=== PATIENT | male | born 1960 | race Caucasian/White ===

== ENCOUNTER → 2017-06-02 | Outpatient (CLI) | payer OTHER ==
[~2017-06-02] MED LIST: ALBU1AER9 INH; DOCU100C31 PO; GLC850 PO; ISOS60TA2 PO; LEVO-14 PO; LISI-789 PO; LPR50X PO; NITR0.4S UT; ROSU40TA PO; ULT50X PO; XRL10 PO
[2017-06-02 18:17] LABS: RATIO 5.6 mcg/mg (0-30.0)
== END | disposition home or self-care (01) ==
LOC: C.LABMFLN 16:39
PROVIDERS: ATTEND Family Medicine
DX: E11.9 Type 2 diabetes mellitus without complications (principal)

== ENCOUNTER → 2017-12-13 | Outpatient (CLI) | payer OTHER ==
[~2017-12-13] MED LIST changes: -GLC850 PO; +METF850T10 PO
[2017-12-13 17:49] LABS: BASO % 0.4 %; BASO ABS # 0.04 K/uL (0-0.2); EOS % 2.5 %; EOS ABS # 0.28 K/uL (0-0.5); HEMATOCRIT 45.7 % (42-52); HEMOGLOBIN 14.7 g/dL (14.0-18.0); IG# 0.03 K/uL (0.00-0.02); LYMPH ABS # 2.53 K/uL (1.2-3.4); MEAN CELL VOLUME 81.9 fL (80-100); MEAN CORPUSCULAR HEMOGLOBIN 26.3 pg (25-34); MEAN CORPUSCULAR HGB CONC 32.2 g/dl (32-36); MONO % 7.8 %; MONO ABS # 0.86 K/uL (0.11-0.59); NEUT ABS # 7.25 K/uL (1.4-6.5); PLATELET COUNT 226 K/uL (130-400); RED CELL DISTRIBUTION WIDTH CV 14.9 % (11.5-14.5); RED CELL DISTRIBUTION WIDTH SD 44.5 fL (36.4-46.3); WHITE BLOOD COUNT 10.99 K/uL (4.8-10.8)
[2017-12-13 18:19] LABS: ALBUMIN 3.7 gm/dl (3.4-5.0); ALT/SGPT 34 U/L (12-78); AST/SGOT 21 U/L (15-37); BLOOD UREA NITROGEN 13 mg/dl (7-18); CALCIUM 8.7 mg/dl (8.5-10.1); CARBON DIOXIDE 25 mmol/L (21-32); CREATININE 0.99 mg/dl (0.60-1.40); GLUCOSE 107 mg/dl (70-99); POTASSIUM 4.5 mmol/L (3.5-5.1); SODIUM 139 mmol/L (136-145)
[2017-12-13 18:21] LABS: ALKALINE PHOSPHATASE 69 U/L (45-117); LDL CHOLESTEROL (DIRECT) 60 mg/dl; TOTAL PROTEIN 7.3 gm/dl (6.4-8.2)
[2017-12-14 06:23] LABS: HEMOGLOBIN A1C 7.1 % (4.5-5.6)
== END | disposition home or self-care (01) ==
LOC: C.LABMFLN 13:37
PROVIDERS: ATTEND Family Medicine
DX: Z00.00 Encounter for general adult medical examination without abnormal findings (principal); I10 Essential (primary) hypertension; E78.5 Hyperlipidemia, unspecified; E11.9 Type 2 diabetes mellitus without complications; R10.32 Left lower quadrant pain

== ENCOUNTER → 2017-12-14 | Outpatient (CLI) | payer OTHER | LOC: C.LABMFLN 14:45 | PROVIDERS: ATTEND Family Medicine | DX: R10.32 Left lower quadrant pain (principal) ==

== ENCOUNTER → 2018-05-11 | Outpatient (CLI) | payer OTHER ==
[2018-05-11 18:23] LABS: BLOOD UREA NITROGEN 24 mg/dl (7-18); CREATININE 1.12 mg/dl (0.60-1.40)
[2018-05-12 06:29] LABS: HEMOGLOBIN A1C 7.1 % (4.5-5.6)
== END | disposition home or self-care (01) ==
LOC: C.LABMFLN 13:38
PROVIDERS: ATTEND Family Medicine
DX: Z01.812 Encounter for preprocedural laboratory examination (principal); E11.9 Type 2 diabetes mellitus without complications

== ENCOUNTER 2022-05-07 08:52 | Inpatient (IN) ==
--- NOTE | 2022-04-20 14:42 | PAT Medication Instructions ---
Medication Instructions Date of Service April 20, 2022 Home Medications Medication Instructions Recorded blood-glucose meter #1 kit 05/15/21 fluticasone propionate 50 See Rx Instructions .Route 06/16/21 mcg/actuation nasal .COMPLEX #16 grams spray,suspension lancets 33 gauge (Rubnia Clark #100 ea 08/12/21 Lancets) gabapentin 300 mg capsule 300 mg PO BID #180 caps 01/06/22 famotidine 40 mg tablet 40 mg PO HS #90 tabs 01/16/22 albuterol sulfate 90 mcg/actuation 2 puff inhalation Q4H PRN 01/27/22 aerosol inhaler shortness of breath or wheezing #18 grams fluticasone propionate 50 mcg/actuation nasal spray,suspension See Rx Instructions .Route .COMPLEX gabapentin 300 mg capsule 300 mg PO BID famotidine 40 mg tablet 40 mg PO HS albuterol sulfate 90 mcg/actuation aerosol inhaler 2 puff inhalation Q4H PRN shortness of breath or wheezing acetaminophen 500 mg tablet 500 mg PO Q6H PRN Pain aspirin 81 mg tablet,delayed release 81 mg PO QAM cyclosporine 0.05 % eye drops in a dropperette (Restasis) 1 drp ophthalmic (eye) Q12H levocetirizine 5 mg tablet 5 mg PO QPM linagliptin 5 mg-metformin ER 1,000 mg tablet,extended release 24 hr (Jentadueto XR) 1 tab PO QAM lisinopril 5 mg tablet 5 mg PO QAM rosuvastatin 10 mg tablet (Crestor) 10 mg PO QPM semaglutide (Ozempic) 0.5 mg subcut WK umeclidinium 62.5 mcg/actuation blister powder for inhalation (Incruse Ellipta) 1 inh inhalation QAM Continue as directed semaglutide (Ozempic) 0.5 mg subcut WK ASK your prescriber and surgeon aspirin 81 mg tablet,delayed release 81 mg PO QAM DO NOT take the morning of surgery linagliptin 5 mg-metformin ER 1,000 mg tablet,extended release 24 hr (Jentadueto XR) 1 tab PO QAM lisinopril 5 mg tablet 5 mg PO QAM Take morning of surgery With a small sip of water, OTHERWISE NOTHING TO EAT OR DRINK AFTER MIDNIGHT: fluticasone propionate 50 mcg/actuation nasal spray,suspension See Rx Instructions .Route .COMPLEX (if needed) gabapentin 300 mg capsule 300 mg PO BID albuterol sulfate 90 mcg/actuation aerosol inhaler 2 puff inhalation Q4H PRN shortness of breath or wheezing (use if needed; please bring rescue inhaler with you to hospital day of surgery if possible) acetaminophen 500 mg tablet 500 mg PO Q6H PRN Pain (if needed) cyclosporine 0.05 % eye drops in a dropperette (Restasis) 1 drp ophthalmic (eye) Q12H umeclidinium 62.5 mcg/actuation blister powder for inhalation (Incruse Ellipta) 1 inh inhalation QAM Take evening before surgery fluticasone propionate 50 mcg/actuation nasal spray,suspension See Rx Instructions .Route .COMPLEX (if needed) gabapentin 300 mg capsule 300 mg PO BID famotidine 40 mg tablet 40 mg PO HS albuterol sulfate 90 mcg/actuation aerosol inhaler 2 puff inhalation Q4H PRN shortness of breath or wheezing (if needed) acetaminophen 500 mg tablet 500 mg PO Q6H PRN Pain (if needed) cyclosporine 0.05 % eye drops in a dropperette (Restasis) 1 drp ophthalmic (eye) Q12H levocetirizine 5 mg tablet 5 mg PO QPM rosuvastatin 10 mg tablet (Crestor) 10 mg PO QPM Other Notes If you have any questions please call us at [phone] or [phone] or [phone] or [phone]
--- NOTE | 2022-04-24 11:48 | Anesthesiology Consultation ---
Date of Service April 24, 2022 Assessment & Plan (1) Encounter for pre-operative examination: - Patient acceptable risk for surgery pending surgeon-ordered PCP preop evaluation (05/04; [facility]). - COVID screening: Per assessment on 04/24: No known COVID-19 positive contacts or current COVID-19 related symptoms. Travel screen negative. Patient vaccinated. Surgeon arranging preop COVID testing. Awaiting results. - Check [facility] AM DOS Chart Review Chart Review: Patient seen in Pre Admission Testing Teaching & Discussion Pre-Anesthesia Teaching/Discussion Notes: Instructed NPO after midnight before surgery,except medications with 15 cc of water. Medication instructions provided according to the PAT guidelines. History Surgery Operation Date: 05/08/22 11:35 Proposed Procedures p L3-L5 Decompression and Fusion Spinal Cord Monitoring - Ulises Castrejon DO Height/Weight Height: 5 ft 3 in Weight: 102.6 kg Allergies Allergy/AdvReac Type Severity Reaction Status Date / Time No Known Allergies Allergy Unknown Verified 04/20/22 12:05 Medications Home Medications Medication Instructions Recorded Confirmed Last Taken blood-glucose meter #1 kit 05/15/21 03/16/22 Unknown fluticasone propionate 50 See Rx Instructions .Route 06/16/21 04/20/22 Unknown mcg/actuation nasal .COMPLEX #16 grams spray,suspension lancets 33 gauge (OneTouch Delica #100 ea 08/12/21 03/16/22 Unknown Lancets) gabapentin 300 mg capsule 300 mg PO BID #180 caps 01/06/22 04/20/22 Unknown famotidine 40 mg tablet 40 mg PO HS #90 tabs 01/16/22 04/20/22 Unknown albuterol sulfate 90 mcg/actuation 2 puff inhalation Q4H PRN 01/27/22 04/20/22 Unknown aerosol inhaler shortness of breath or wheezing #18 grams acetaminophen 500 mg tablet 500 mg PO Q6H PRN Pain 04/20/22 04/20/22 Unknown aspirin 81 mg tablet,delayed 81 mg PO QAM 04/20/22 04/20/22 Unknown release cyclosporine 0.05 % eye drops in a 1 drp ophthalmic (eye) Q12H 04/20/22 04/20/22 Unknown dropperette (Restasis) levocetirizine 5 mg tablet 5 mg PO QPM 04/20/22 04/20/22 Unknown linagliptin 5 mg-metformin ER 1 tab PO QAM 04/20/22 04/20/22 Unknown 1,000 mg tablet,extended release 24 hr (Jentadueto XR) lisinopril 5 mg tablet 5 mg PO QAM 04/20/22 04/20/22 Unknown rosuvastatin 10 mg tablet (Crestor) 10 mg PO QPM 04/20/22 04/20/22 Unknown semaglutide 0.25 mg or 0.5 mg (2 0.5 mg subcut WK 04/20/22 04/20/22 Unknown mg/1.5 mL) subcutaneous pen injector (Ozempic) umeclidinium 62.5 mcg/actuation 1 inh inhalation QAM 04/20/22 04/20/22 Unknown blister powder for inhalation (Incruse Ellipta) Past Medical History Medical History Allergic rhinitis Anxiety Cervical radiculopathy Cervical spinal stenosis Chronic back pain Chronic GERD Occasional Complex partial seizure Single episode 5+ years - felt r/t severe pain and arm injury per pt COPD, moderate Stable Coronary artery disease Non-obstructive CAD (circumflex PDA 50-60 proximal stenosis, Mild RCA 20%) per 2014 cardiac cath Degenerative disc disease Depression DM type 2 (diabetes mellitus, type 2) NIDDM Dyslipidemia Dystonic tremor Pt denies Per [facility] [place] (06/09/21): "Resolved paroxysmal upper extremity movements. Etiology of these movements was not entirely clear although they seem to respond to Keppra. In any event, this prescription ran out about 1 month ago. The abnormal movements have not recurred. At this point in time, patient will continue to monitor for any symptomatic recurrence, if so, may contact me for further evaluation and management at that time. Otherwise, return to neurology clinic on an as-needed basis." Hypertension Osteoarthritis Poor historian Sciatica Sleep apnea Does not use device Exercise / Class Metabolic Activity III < 4 Walking/Shop/Light housework Past Family History Family History Mother Type 2 diabetes mellitus Acute myocardial infarction Father Prostate cancer Type 2 diabetes mellitus Acute myocardial infarction Brother Lymphoma Other No family history of adverse response to anesthesia Past Surgical History Surgical History History of appendectomy History of cardiac catheterization 2013 ([facility]) History of colonoscopy History of inguinal hernia repair Right History of knee replacement R/L History of oral surgery History of repair of rotator cuff Right History of tonsillectomy and adenoidectomy Hx of cervical spine surgery Fusion/"wires" S/P knee surgery Left knee ligament removal Past Anesthesia History No Hx of Anesthesia Complications and No Family Hx of Anesthesia Complications History of PONV No Hx of PONV and No Hx of Motion Sickness Social History Smoking Status: Never smoker Do You Dip or Chew Tobacco: No Hx Alcohol Use: No Hx Substance Use: No Review of Systems Patient denies chest pain, shortness of breath, fever, chills, cough, wheezing, palpitations. Physical Exam Vital Signs VITALS BP 105/62 P 87 TEMP 98.1 SP02 97%RA RESP 18 PHYSICAL Decreased cervical extension range of motion (s/p cervical fusion) Full TMJ range of motion. TMD 3 finger breaths Mallampati Score 2 Dentition: full upper denture, edentulous Lungs: clear throughout to auscultation Cardiac: regular rate and rhythm, no murmurs noted Spine: normal Carotid arteries: negative bruit Extremities: no edema Lab Results Anesthesia Preop Results Results Anesthesia Widget: WBC 7.78 K/ul (4.8-10.8) 04/24/22 Hgb 14.2 g/dl (14.0-18.0) 04/24/22 Hct 43.3 % (40.1-51.0) 04/24/22 Plt 188 K/uL (130-400) 04/24/22 Na 137 mmol/L (136-145) 04/24/22 K 4.8 mmol/L (3.5-5.1) 04/24/22 Cl 105 mmol/L (98-107) 04/24/22 CO2 27 mmol/L (21-32) 04/24/22 BUN 18 mg/dl (6-23) 04/24/22 Creat 1.17 mg/dl (0.6-1.4) 04/24/22 Glucose Level 169 mg/dl (70-99(Fasting)) H 04/24/22 PT 10.7 Seconds (9.0-12.0) 04/24/22 PTT 25.5 Seconds (21.0-31.0) 04/24/22 INR 1.0 (0.9-1.1) 04/24/22 Urine Color Yellow 04/24/22 Urine Appearance Clear (Clear) 04/24/22 Urine pH 5.0 (4.5-7.5) 04/24/22 Urine Specific [place] 1.029 (1.000-1.030) 04/24/22 Urine Protein Negative (Negative) 04/24/22 Urine Glucose (UA) 2+ (Negative) H 04/24/22 Urine Ketones Negative (Negative) 04/24/22 Urine Blood Negative (Negative) 04/24/22 Urine Nitrite Negative (Negative) 04/24/22 Urine Bilirubin Negative (Negative) 04/24/22 Urine Urobilinogen Negative (Negative) 04/24/22 Urine Leukocyte Esterase Negative (Negative) 04/24/22 Blood Type A Positive 04/24/22 Antibody Screen NEGATIVE 04/24/22 Testing Laboratory Results 11/11/21 HGBA1C 7.1% Electrocardiogram Date: 04/24/22 SR with marked sinus arrhythmia at 67bpm. Early repolarization. Otherwise normal ECG. Chest X-Ray Date: 10/14/21 No acute findings. Lungs are clear. No pleural effusions or pneumothorax. Echocardiogram Date: 01/14/21 EF 60-65%. No RWMA. Moderate cLVH. Trivial AV sclerosis without stenosis. Mild diastolic dysfunction. No significant change from 10/12/2013 per report. Stress Test Date: 04/21/16 Type: nuclear Normal Lexiscan. Normal stress test. LVEF 56%. 3 times daily is 1.26 which is upper limits of normal. 79% MPHR. Other Testing CTA Neck (10/15/21) Postsurgical changes are noted with prior decompressive laminectomies and C3-C6 posterior spinal fusion instrumentation. Atherosclerosis without significant stenosis by NASCET criteria at the carotid bulb and no evidence of intracranial large vessel occlusion. Patient's palpable lump in the anterior neck may be related to the prominent anterior jugular vein, a normal vascular structure. S table CT head without evidence of acute intracranial hemorrhage or calvarial fracture.
[~2022-05-07 08:52] MED LIST changes: +ACETAMINOPHEN 500 MG TAB PO SCH; -ALBU1AER9 INH; +CeleBREX 200 MG CAP PO SCH; -DOCU100C31 PO; +GABAPENTIN 600 MG DOSE PO SCH; -ISOS60TA2 PO; -LEVO-14 PO; -LISI-789 PO; -LPR50X PO; +LR 15ML/HR IV SCH; -METF850T10 PO; -NITR0.4S UT; -ROSU40TA PO; -ULT50X PO; -XRL10 PO; +ceFAZolin 2000MG 2,000 MG/15 ML SYR IV SCH
[2022-05-07] MEDS ORDERED: ePHEDrine sulfate 50 MG/ML AMP IV PRN (09:55)
[2022-05-07] MEDS ORDERED: HYDROmorphone INJ 1 MG/ML SYRINGE IV PRN ×2 (09:55→16:07)
[2022-05-07] MEDS ORDERED: ATROPINE SULFATE 0.1 MG/ML 10ML SYR IV PRN (09:55)
[2022-05-07] MEDS ORDERED: ONDANSETRON INJ 2 MG/ML 2 ML VIAL IV PRN ×2 (09:55→16:07)
[2022-05-07] MEDS ORDERED: fentaNYL citrate 100 MCG/2 ML VIAL ONE ×2 (10:53→14:09)
[2022-05-07] MEDS ORDERED: DEXAMETHASONE SOD INJ 4 MG/ML VIAL ONE (10:53)
[2022-05-07] MEDS ORDERED: PROPOFOL IV EMULSION 10 MG/ML 20 ML VIAL IV ONE (10:53)
[2022-05-07] MEDS ORDERED: ONDANSETRON INJ 2 MG/ML 2 ML VIAL ONE (10:53)
[2022-05-07] MEDS ORDERED: MIDAZOLAM HCL 1 MG/ML 2ML VIAL ONE (10:53)
[2022-05-07] MEDS ORDERED: LIDOCAINE 2% MPF LOCAL 5 ML VIAL INFIL ONE (10:53)
[2022-05-07] MEDS ORDERED: ROCURONIUM BROMIDE 10 MG/ML 5 ML VIAL IV ONE ×6 (10:53→12:32)
--- NOTE | 2022-05-07 11:30 | History & Physical Bridge Note ---
Date of Service May 07, 2022 History & Physical Bridge Note I have examined the patient, reviewed the History & Physical and in the interval since the performance of the History & Physical I have noted the following changes of clinical significance: no changes noted
--- NOTE | 2022-05-07 11:31 | History & Physical Report ---
Date of Service May 07, 2022 Assessment & Plan (1) Neurogenic claudication due to lumbar spinal stenosis: Plan: L3-L5 decompression and fusion History of Present Illness Chief Complaint: Back and leg pain Primary Care Provider: Vernon Hoffman MD This is a 61-year-old male who presents with chronic persistent back and leg pain. Of failed course of nonoperative care is here for surgical intervention. Allergies Allergy/AdvReac Type Severity Reaction Status Date / Time No Known Allergies Allergy Unknown Verified 05/07/22 09:16 Home Medications Medication Instructions Recorded Confirmed Type blood-glucose meter #1 kit 05/15/21 05/04/22 Rx fluticasone propionate 50 See Rx Instructions .Route 06/16/21 05/07/22 Rx mcg/actuation nasal .COMPLEX #16 grams spray,suspension lancets 33 gauge (OneTouch Delica #100 ea 08/12/21 05/04/22 Rx Lancets) gabapentin 300 mg capsule 300 mg PO BID #180 caps 01/06/22 05/07/22 Rx albuterol sulfate 90 mcg/actuation 2 puff inhalation Q4H PRN 01/27/22 05/07/22 Rx aerosol inhaler shortness of breath or wheezing #18 grams acetaminophen 500 mg tablet 500 mg PO Q6H PRN Pain 04/20/22 05/07/22 History aspirin 81 mg tablet,delayed 81 mg PO QAM 04/20/22 05/07/22 History release cyclosporine 0.05 % eye drops in a 1 drp ophthalmic (eye) Q12H 04/20/22 05/07/22 History dropperette (Restasis) levocetirizine 5 mg tablet 5 mg PO QPM 04/20/22 05/07/22 History linagliptin 5 mg-metformin ER 1 tab PO QAM 04/20/22 05/07/22 History 1,000 mg tablet,extended release 24 hr (Jentadueto XR) lisinopril 5 mg tablet 5 mg PO QAM 04/20/22 05/07/22 History semaglutide 0.25 mg or 0.5 mg (2 0.5 mg subcut WK 04/20/22 05/07/22 History mg/1.5 mL) subcutaneous pen injector (Ozempic) umeclidinium 62.5 mcg/actuation 1 inh inhalation QAM 04/20/22 05/07/22 History blister powder for inhalation (Incruse Ellipta) blood sugar diagnostic (OneTouch #100 ea 04/30/22 05/04/22 Rx Ultra Test strips) docusate sodium 100 mg capsule 100 mg PO BID #60 caps 05/06/22 05/07/22 Rx (Colace) famotidine 40 mg tablet (Pepcid) 40 mg PO HS 05/07/22 05/07/22 History rosuvastatin 10 mg tablet 10 mg PO HS 05/07/22 05/07/22 History Past Med/Surg History Medical History Allergic rhinitis Anxiety Cervical radiculopathy Cervical spinal stenosis Chronic back pain Chronic GERD Occasional Complex partial seizure Single episode 5+ years - felt r/t severe pain and arm injury per pt COPD, moderate Stable Coronary artery disease Non-obstructive CAD (circumflex PDA 50-60 proximal stenosis, Mild RCA 20%) per 2014 cardiac cath Degenerative disc disease Depression DM type 2 (diabetes mellitus, type 2) NIDDM Dyslipidemia Dystonic tremor Pt denies Per [facility] [place] neuro note (06/09/21): "Resolved paroxysmal upper extremity movements. Etiology of these movements was not entirely clear although they seem to respond to Keppra. In any event, this prescription ran out about 1 month ago. The abnormal movements have not recurred. At this point in time, patient will continue to monitor for any symptomatic recurrence, if so, may contact me for further evaluation and management at that time. Otherwise, return to neurology clinic on an as-needed basis." Hypertension Osteoarthritis Poor historian Sciatica Sleep apnea Does not use device Surgical History History of appendectomy History of cardiac catheterization 2013 ([facility]) History of colonoscopy History of inguinal hernia repair Right History of knee replacement R/L History of oral surgery History of repair of rotator cuff Right History of tonsillectomy and adenoidectomy Hx of cervical spine surgery Fusion/"wires" S/P knee surgery Left knee ligament removal Family History Mother Type 2 diabetes mellitus Acute myocardial infarction Father Prostate cancer Type 2 diabetes mellitus Acute myocardial infarction Brother Lymphoma Other No family history of adverse response to anesthesia Social History Smoking Status: Former smoker Second Hand Exposure: No; Do You Dip or Chew Tobacco: No; Tobacco Cessation Education Requested by Patient: No Hx Alcohol Use: No Hx Substance Use: No Preferred Language: Czech Communication Ability: Effective Visual Impairment: No Limitations Hearing Ability: Normal Scraper Meat Required: No Beliefs That Will Affect Care: None marital status: Current Living Situation: Spouse Current Living Situation Comment: , daughter and son in law and granddaughter current occupational status: unemployed and disabled Other Information That Helps Us Care for You: No Feels Safe at Home: Yes Safety Concerns: Feels Safe At This Time caffeine: Yes Dental Care, Regularly: No Physical Activity Frequency: Does not Exercise Seatbelt Use: always Sunscreen Use: No Assistive Devices: Cane, Denture - Upper, Glasses and Walker Physical Exam Physical Exam: Patient is alert and oriented Heart regular rhythm Lungs clear Results & Data Results & Data ([facility]) Vital Signs (Past 12 Hours) Vital Signs Temp Pulse Resp BP Pulse Ox O2 Del Method 05/07/22 09:28 36.5 C 72 18 137/82 98 Room Air
[2022-05-07] MEDS ORDERED: BUPIVACAINE/EPINEPHRINE 0.25% 1:200,000 30 ML VIAL ONE (11:53)
[2022-05-07] MEDS ORDERED: ceFAZolin 330 MG/ML 1 GM VIAL ONE (11:53)
[2022-05-07] MEDS ORDERED: GLYCOPYRROLATE 0.2 MG/ML VIAL ONE (13:11)
[2022-05-07] MEDS ORDERED: NEOSTIGMINE METHYLSULFATE 1 MG/ML 10ML VIAL ONE (13:11)
[2022-05-07] MEDS ORDERED: FLOSEAL HEMOSTATIC MATRIX 10ML TOP ONE (13:22)
--- NOTE | 2022-05-07 15:05 | Operative Report ---
Post Operative Report Pre & Post Diagnosis Operation Date: 05/07/22 11:05 Pre-Op Diagnosis: Neurogenic claudication due to lumbar spinal stenosis Post-Op Diagnosis: Neurogenic claudication due to lumbar spinal stenosis I identified the patient and participated in the time-out.: Yes Procedure Operation Date: 05/07/22 11:05 Actual Procedures #1 lumbar decompression bilateral medial facetectomies and foraminotomies L2-L3, L3-L4 and L4-5 per #2 posterior spinal fusion L3-L4 L4-5 per #3 placement posterior instrumentation L3-L4 L4-L5. #4 interbody fusion L3-L4 L4-L5. #5 placement of Spira 13 x 26 mm cage at L3-L4 and 15 x 26 mm cage at L4-L5. #6 placement locally harvested morselized autograft in the posterior gutters. #7 placement of I factor combined with V toss interbody space and posterior lateral gutters. Surgeon Ulises Castrejon, DO Oven Laborer None Estimated Blood Loss 300 Findings See Below The patient is 5 foot 8 weighing over 100 kg with a BMI in excess of 33. Patient's body habitus did contribute to significant technical difficulty requiring her deeper retractors and longer instruments noted to perform his procedure. This had at least 50% increased operative time. Specimens None Indications This is a 61-year-old male who presents above-mentioned diagnosis after failed course of nonoperative care is here for surgical invention. Description of Procedure Patient was met with identified informed consent obtained. Patient was then taken to the operative suite underwent a patient placed in a prone position on the Beni table on top Kehinde frame. All bony prominences well-padded eyes inspected to ensure no external pressure placed upon the. This point the lumbar spine was prepped and draped in normal sterile fashion. Sharp dissection with assistance of Bovie cautery was performed down to and exposing the lamina transverse processes of L3-L4-L5 bilaterally. From caudal to cephalad fashion complete laminectomy of L4 L3 and partial laminectomy of L2 was performed including bilateral medial facetectomies and foraminotomies addressing severe spinal stenosis. Pedicle screws then placed in L3 L4-5 bilaterally with assistance of fluoroscopy and the properly sized daren placed. By way of transforaminal approach on the left complete discectomy L4-L5 was performed endplates curetted to subcortical bleeding bone and a 15 x 26 mm spiral cage filled I factor tapped in position. Then proceeded to L3-L4 to get by way of t ransforaminal approach and left complete discectomy performed endplates curetted to subcortical bleeding bone and a 13 x 26 mm spiral cage filled with I factor tapped in position. Rods were then locked in final position bilaterally. The transverse processes of L3-L4-L5 burred to subcortically bone. I factor V toss and locally harvested morselized autograft was placed in the posterior gutters. 15 round BROOKS drain inserted. The incision was then closed with 1 Vicryl the fascia 2-0 Vicryl subcutaneously and 4 Monocryl for final skin closure. Steri- Strip sterile dressings placed. Patient waken taken PACU stable condition. Please note spinal cord monitoring was utilized at the procedure no changes noted. I attest to the content of the Intraoperative Record and any orders documented therein. Any exceptions are noted below.
--- NOTE | 2022-05-07 15:14 | Anesthesiology Progress Note ---
Date of Service May 07, 2022 Anesthesia Post Procedure Vital Signs Vital Signs: Temp Pulse Resp BP Pulse Ox O2 Del Method O2 Flow Rate 05/07/22 15:10 69 18 117/73 99 Oxymask 4 05/07/22 15:00 69 16 116/72 99 Oxymask 6 05/07/22 14:50 97.5 F L 74 16 121/72 99 Oxymask 8 05/07/22 09:28 97.7 F 72 18 137/82 98 Room Air Transfer of Care Handoff Completed per policy Notes Mental Status: alert / awake / arousable and participated in evaluation Patient Amnestic to Procedure: Yes Nausea / Vomiting: adequately controlled Pain: adequately controlled Airway Patency, RR, SpO2: stable & adequate BP & HR: stable & adequate Hydration State: stable & adequate Anesthetic Complications: no major complications apparent and Pt Satisfied with anesthetic care
[2022-05-07] MEDS: fentaNYL citrate 100 MCG/2 ML VIAL IV PRN ×2 (15:26→15:31)
--- NOTE | 2022-05-07 15:26 | Fluoroscopy Report ---
INTRAOPERATIVE RADIOGRAPHS CLINICAL HISTORY: L3-L5 spinal fusion. Fluoroscopy time: 21 seconds. FINDINGS: 2 spot fluoroscopic views of the lumbar spine are presented. There has been discectomy at L 3-L4 and L4-L5 with laminectomy and posterior fusion at L3-L5. Interpedicular screws are present at a ll levels. The orthopedic hardware appears intact. IMPRESSION: Intraoperative images from lumbar spinal fusion surgery as above. Electronically signed by: Rock Gramajo M.D. 05/07/2022 3:24 PM
[2022-05-07] MEDS ORDERED: FAMOTIDINE 20 MG TAB PO PRN (16:07)
[2022-05-07] MEDS ORDERED: HYDROmorphone INJ 0.5 MG/0.5 ML SYR IV PRN (16:07)
[2022-05-07] MEDS ORDERED: PHARMACY GLYCEMIC MGMT CONSULT PRN (16:07)
[2022-05-07] MEDS ORDERED: MAGNESIUM HYDROXIDE SUSP 30 ML UDC PO PRN (16:07)
[2022-05-07] MEDS ORDERED: ALBUTEROL HFA 8 GM INHALER INH PRN (16:07)
[2022-05-07] MEDS ORDERED: bisacodyL 10 MG SUPP PR PRN (16:07)
[2022-05-07] MEDS ORDERED: oxyCODONE HCL IR 5 MG TAB (IMMEDIATE RELEASE) PO PRN (16:07)
[2022-05-07] MEDS ORDERED: METOCLOPRAMIDE HCL INJ 5 MG/ML 2 ML VIAL IV PRN (16:07)
[2022-05-07] MEDS ORDERED: hydrOXYzine HCl 25 MG TAB PO PRN (16:07)
[2022-05-07] MEDS ORDERED: LORazepam 0.5 MG TAB PO PRN (16:07)
[2022-05-07] MEDS ORDERED: SOD PHOSPHATE/SOD BIPHOSPHATE ENEMA 132 ML BTL PR PRN (16:07)
[2022-05-07] MEDS ORDERED: traMADol HCL 50 MG TABLET PO PRN (16:07)
[2022-05-07] MEDS ORDERED: diphenhydrAMINE Capsule 25 MG CAP PO PRN (16:07)
[2022-05-07] MEDS ORDERED: PROMETHAZINE HCL 12.5 MG in SODIUM CHLORIDE 0.9% 50 ML IV PRN (16:07)
[2022-05-07] MEDS ORDERED: ALUMINUM/MAGNESIUM SUSP 30 ML UDC PO PRN (16:07)
[2022-05-07] MEDS ORDERED: LORazepam 0.5 MG in SYRINGE 0.25 ML IV PRN (16:07)
[2022-05-07] MEDS ORDERED: NALOXONE HCL 0.4 MG/1 ML VIAL/CARP IV PRN (16:07)
[2022-05-07] MEDS ORDERED: ONDANSETRON 4 MG OD TAB PO PRN (16:07)
[2022-05-07] MEDS ORDERED: ACETAMINOPHEN 500 MG TAB PO PRN (16:07)
[2022-05-07] MEDS ORDERED: ACETAMINOPHEN 1,000 MG/100 ML VIAL IV PRN (16:07)
[2022-05-07] MEDS: SODIUM CHLORIDE 0.9% 1000ML 1,000 ML IV SCH ×2 (16:26→22:49)
[2022-05-07] MEDS ORDERED: GLUCOSE 10 TAB/TUBE PO PRN (16:30)
[2022-05-07] MEDS ORDERED: DEXTROSE 50% 50 ML SYRINGE IV PRN (16:30)
[2022-05-07] MEDS ORDERED: GLUCOSE 40% GEL 15 GM TUBE PO PRN (16:30)
[2022-05-07] MEDS ORDERED: CARBOHYDRATES FOR HYPOGLYCEMIA PO PRN (16:30)
[2022-05-07] MEDS ORDERED: GLUCAGON FOR INJ 1 MG VIAL IM PRN (16:30)
[2022-05-07] MEDS ORDERED: LANTUS PER UNIT CHARGE SQ ONE (16:45)
--- NOTE | 2022-05-07 17:28 | History & Physical Report ---
Date of Service May 07, 2022 Assessment & Plan (1) Neurogenic claudication due to lumbar spinal stenosis: Plan: - POD #0. EBL 300 cc. 1 BROOKS drain intact. No complications. - Pain/ABX/IVF/diet/drain management/transfusion needs/activity per primary team - Rescue Narcan ordered for over sedation PRN - VTE prophylaxis per primary service- SCDs in place - CBC and BMP in AM. - Baseline renal function: - Baseline Hgb: (2) Coronary artery disease: Plan: - Cath in 2013 showed nonobstructive CAD with circumflex PDA 50-60% proximal stenosis, mild RCA 25% gnosis, NEUROLOGICAL: Alert, oriented, and cooperative. Cranial nerves, sensation and strength grossly intact. Pupils round, equal, and react to light, EOMs are full. Lexiscan stress test in 2015. -No recent chest pain, shortness of breath, GARDUNO on exertion, palpitations. -Continue with daily baby aspirin, Crestor, lisinopril on POD #1 or #2, see below. (3) DM type 2 (diabetes mellitus, type 2): Plan: - Hold Ozempic and Jentadueto XR, place Accu-Cheks achs with SSI. - Continue gabapentin 30 mg twice daily for neuropathy. - A1c in October 7.1% (4) Gastroesophageal reflux disease: Plan: - Controlled, no acute needs. Continue Pepcid 40 mg at night. (5) Hypertension: Plan: - Ideally would recommend holding lisinopril until POD #2, however if elevated BP tomorrow POD #1, may restart then as long as renal function at baseline on a.m. BMP. (6) COPD, moderate: Plan: - Continue home inhalers, Ellipta in the a.m. and albuterol every 4 as needed. - Previous smoker, quit several years ago. (7) Allergic rhinitis: Plan: - Continue fluticasone and Claritin. (8) Severe sleep apnea: Plan: - CPAP at night. Plan - Admit to med/surge per primary team. - SCDs ordered for DVT PPx per primary team. - Full code. Admission and Anticipated Discharge Date Admission Date: May 07, 2022 History of Present Illness Primary Care Provider: Vernon Hoffman MD Sandeep Pena is a 61-year-old male with past medical history significant for CAD, hypertension, hyperlipidemia, DM 2, COPD, allergic rhinitis, GERD, and sleep apnea, who was admitted today, 05/07 for a L3-L5 decompression and fusion surgery with Dr. Castrejon. Hospitalist group was consulted for post-operative medication management. Today, he is POD#0 and feels well. Denies fever/chills, weakness, chest pain, palpitations, shortness of breath, cough, orthopnea, abdominal pain, nausea, vomiting. Allergies Allergy/AdvReac Type Severity Reaction Status Date / Time No Known Allergies Allergy Unknown Verified 05/07/22 09:16 Home Medications Medication Instructions Recorded Confirmed Type blood-glucose meter #1 kit 05/15/21 05/04/22 Rx fluticasone propionate 50 See Rx Instructions .Route 06/16/21 05/07/22 Rx mcg/actuation nasal .COMPLEX #16 grams spray,suspension lancets 33 gauge ([employer] #100 ea 08/12/21 05/04/22 Rx Lancets) gabapentin 300 mg capsule 300 mg PO BID #180 caps 01/06/22 05/07/22 Rx albuterol sulfate 90 mcg/actuation 2 puff inhalation Q4H PRN 01/27/22 05/07/22 Rx aerosol inhaler shortness of breath or wheezing #18 grams acetaminophen 500 mg tablet 500 mg PO Q6H PRN Pain 04/20/22 05/07/22 History aspirin 81 mg tablet,delayed 81 mg PO QAM 04/20/22 05/07/22 History release cyclosporine 0.05 % eye drops in a 1 drp ophthalmic (eye) Q12H 04/20/22 05/07/22 History dropperette (Restasis) levocetirizine 5 mg tablet 5 mg PO QPM 04/20/22 05/07/22 History linagliptin 5 mg-metformin ER 1 tab PO QAM 04/20/22 05/07/22 History 1,000 mg tablet,extended release 24 hr (Jentadueto XR) lisinopril 5 mg tablet 5 mg PO QAM 04/20/22 05/07/22 History semaglutide 0.25 mg or 0.5 mg (2 0.5 mg subcut WK 04/20/22 05/07/22 History mg/1.5 mL) subcutaneous pen injector ([employer]) umeclidinium 62.5 mcg/actuation 1 inh inhalation QAM 04/20/22 05/07/22 History blister powder for inhalation (Incruse Ellipta) blood sugar diagnostic (OneTouch #100 ea 04/30/22 05/04/22 Rx Ultra Test strips) docusate sodium 100 mg capsule 100 mg PO BID #60 caps 05/06/22 05/07/22 Rx (Colace) famotidine 40 mg tablet (Pepcid) 40 mg PO HS 05/07/22 05/07/22 History rosuvastatin 10 mg tablet 10 mg PO HS 05/07/22 05/07/22 History Past Med/Surg History Medical History Allergic rhinitis Anxiety Cervical radiculopathy Cervical spinal stenosis Chronic back pain Chronic GERD Occasional Complex partial seizure Single episode 5+ years - felt r/t severe pain and arm injury per pt COPD, moderate Stable Coronary artery disease Non-obstructive CAD (circumflex PDA 50-60 proximal stenosis, Mild RCA 20%) per 2014 cardiac cath Degenerative disc disease Depression DM type 2 (diabetes mellitus, type 2) NIDDM Dyslipidemia Dystonic tremor Pt denies Per [facility] [place] (06/09/21): "Resolved paroxysmal upper extremity movements. Etiology of these movements was not entirely clear although they seem to respond to Keppra. In any event, this prescription ran out about 1 month ago. The abnormal movements have not recurred. At this point in time, patient will continue to monitor for any symptomatic recurrence, if so, may contact me for further evaluation and management at that time. Otherwise, return to neurology clinic on an as-needed basis." Hypertension Osteoarthritis Poor historian Sciatica Sleep apnea Does not use device Surgical History History of appendectomy History of cardiac catheterization 2013 ([facility]) History of colonoscopy History of inguinal hernia repair Right History of knee replacement R/L History of oral surgery History of repair of rotator cuff Right History of tonsillectomy and adenoidectomy Hx of cervical spine surgery Fusion/"wires" S/P knee surgery Left knee ligament removal Family History Mother Type 2 diabetes mellitus Acute myocardial infarction Father Prostate cancer Type 2 diabetes mellitus Acute myocardial infarction Brother Lymphoma Other No family history of adverse response to anesthesia Social History Smoking Status: Former smoker Second Hand Exposure: No; Do You Dip or Chew Tobacco: No; Tobacco Cessation Education Requested by Patient: No Hx Alcohol Use: No Hx Substance Use: No Preferred Language: Mohawk Communication Ability: Effective Visual Impairment: No Limitations Hearing Ability: Normal Whale Fisherman Required: No Beliefs That Will Affect Care: None marital status: Current Living Situation: Spouse Current Living Situation Comment: , daughter and son in law and granddaughter current occupational status: unemployed and disabled Other Information That Helps Us Care for You: No Feels Safe at Home: Yes Safety Concerns: Feels Safe At This Time caffeine: Yes Dental Care, Regularly: No Physical Activity Frequency: Does not Exercise Seatbelt Use: always Sunscreen Use: No Assistive Devices: Cane, Denture - Upper, Glasses and Walker Results & Data Results & Data ([facility]) Vital Signs (Past 12 Hours) Vital Signs Temp Pulse Pulse Resp BP Pulse Ox O2 Del Method 05/07/22 17:00 36.5 C 84 16 110/67 100 Nasal Cannula 05/07/22 16:29 36.6 C 75 16 112/71 96 Nasal Cannula 05/07/22 16:00 36.8 C 78 16 105/61 99 Nasal Cannula 05/07/22 15:40 36.5 C 64 12 102/68 97 Nasal Cannula 05/07/22 15:30 73 12 105/68 93 Room Air 05/07/22 15:20 36.3 C L 70 16 118/71 95 Room Air 05/07/22 15:10 69 18 117/73 99 Oxymask 05/07/22 15:00 69 16 116/72 99 Oxymask 05/07/22 14:50 36.4 C L 74 16 121/72 99 Oxymask 05/07/22 09:28 36.5 C 72 18 137/82 98 Room Air O2 Flow Rate 05/07/22 17:00 2 05/07/22 16:29 2 05/07/22 16:00 2 05/07/22 15:40 2 05/07/22 15:30 05/07/22 15:20 05/07/22 15:10 4 05/07/22 15:00 6 05/07/22 14:50 8 05/07/22 09:28 Laboratory Results Abnormal lab results 05/07/22 05/07/22 05/07/22 Range/Units 09:17 09:36 15:11 POC Glucose 124 H 157 H (70-99) mg/dl Crossmatch See Detail Diagnostic Findings Lumbar Spine X-Ray 05/07/22 11:05 INTRAOPERATIVE RADIOGRAPHS CLINICAL HISTORY: L3-L5 spinal fusion. Fluoroscopy time: 21 seconds. FINDINGS: 2 spot fluoroscopic views of the lumbar spine are presented. There has been discectomy at L3-L4 and L4-L5 with laminectomy and posterior fusion at L3- L5. Interpedicular screws are present at all levels. The orthopedic hardware appears intact. IMPRESSION: Intraoperative images from lumbar spinal fusion surgery as above. Electronically signed by: Rock Gramajo M.D. 05/07/2022 3:24 PM Code Status & VTE Plan VTE Prophylaxis Plan VTE Prophylaxis will be ordered: Yes PG Care Time/CCT Total # of Minutes Spent Total Time Spent with Patient: Total time spent is greater than 50% in coordination of care (as documented) at patient's floor/unit and/or counseling patient: Coding Diagnoses Neurogenic claudication due to lumbar spinal stenosis M48.062 Coronary artery disease I25.10 DM type 2 (diabetes mellitus, type 2) E11.9 Gastroesophageal reflux disease K21.9 Hypertension I10 COPD, moderate J44.9 Allergic rhinitis J30.9 Severe sleep apnea G47.30
--- NOTE | 2022-05-07 17:35 | Hospitalist Consultation ---
Date of Consultation May 07, 2022 Assessment & Plan (1) Neurogenic claudication due to lumbar spinal stenosis: - POD#0, EBL 300cc, 1 BROOKS drain, no complications. - Pain/ABX/IVF/diet/drain management/transfusion needs/activity per primary team - Rescue Narcan ordered for over sedation PRN - VTE prophylaxis per primary service- SCDs in place - CBC and BMP in AM. - Baseline renal function: CR 1.17, GFR 67 - Baseline Hgb: 14.2 (2) Coronary artery disease: - Cardiac cath in 2013 showed nonobstructive disease. Patient had a normal stress test in 2016. He has not had recent chest pain, shortness of breath, GARDUNO, palpitations. - Continue ASA 81 mg daily, Crestor, lisinopril on POD #2. (3) DM type 2 (diabetes mellitus, type 2): - Hold oral agents while in hospital, placed on Accu-Cheks ACHS with SSI. - A1c in October = 7.1% - Continue gabapentin for neuropathy. (4) Gastroesophageal reflux disease: - Chronic, stable. Continue Pepcid 40 mg at night. (5) Hypertension: - Ideally, would restart lisinopril on POD #2 due to possibility of anesthesia and lisinopril combination causing hypotension, however if patient is hypertensive now POD #1, may restart then pending renal function is at baseline on a.m. BMP. (6) COPD, moderate: -Continue home inhalers, Ellipta in the morning with TYLER as needed. (7) Allergic rhinitis: - Continue Flonase and Claritin. (8) Severe sleep apnea: - No longer using CPAP. Plan - Admitted to [facility] per primary team - SCDs ordered per primary team, further VTE PPx per primary team. - Full code. Supervising Physician Co-Signing Physician Notes I personally saw and examined the patient. I verified all hurley points and agree with Marti Kelly PA-C with the following exceptions and/or additions: 61 year old male POD#0 Lumbar decompression and posterior spinal fusion performed by Dr Castrejon. Patient already noted improvement in lower extremity pain. Doing well post operatively. O/E HS1+2, no murmurs, Chest CTAB, sensation in toes bilaterally normal, ankle plantarflexion 5/5 b/l A/P Reviewed medications and plan above with patient. Thank you for the consult we will review patient with post op labs tomorrow. History of Present Illness Reason for Consultation: Postop medical management Requesting Physician: Ulises Castrejon DO Attending Physician: Ulises Castrejon DO History of Present Illness Sandeep Pena is a 61-year-old male with past medical history significant for CAD, hypertension, hyperlipidemia, DM 2, COPD, allergic rhinitis, GERD, and sleep apnea, who was admitted today, 05/07 for a L3-L5 decompression and fusion surgery with Dr. Castrejon. Hospitalist group was consulted for post-operative medication management. Today, he is POD#0 and feels well. Denies fever/chills, weakness, chest pain, palpitations, shortness of breath, cough, orthopnea, abdominal pain, nausea, vomiting, pain, numbness, tingling. He is eager to eat. Allergies Allergy/AdvReac Type Severity Reaction Status Date / Time No Known Allergies Allergy Unknown Verified 05/07/22 09:16 Home Medications Medication Instructions Recorded Confirmed Type blood-glucose meter #1 kit 05/15/21 05/04/22 Rx fluticasone propionate 50 See Rx Instructions .Route 06/16/21 05/07/22 Rx mcg/actuation nasal .COMPLEX #16 grams spray,suspension lancets 33 gauge ([employer] #100 ea 08/12/21 05/04/22 Rx Lancets) gabapentin 300 mg capsule 300 mg PO BID #180 caps 01/06/22 05/07/22 Rx albuterol sulfate 90 mcg/actuation 2 puff inhalation Q4H PRN 01/27/22 05/07/22 Rx aerosol inhaler shortness of breath or wheezing #18 grams acetaminophen 500 mg tablet 500 mg PO Q6H PRN Pain 04/20/22 05/07/22 History aspirin 81 mg tablet,delayed 81 mg PO QAM 04/20/22 05/07/22 History release cyclosporine 0.05 % eye drops in a 1 drp ophthalmic (eye) Q12H 04/20/22 05/07/22 History dropperette (Restasis) levocetirizine 5 mg tablet 5 mg PO QPM 04/20/22 05/07/22 History linagliptin 5 mg-metformin ER 1 tab PO QAM 04/20/22 05/07/22 History 1,000 mg tablet,extended release 24 hr (Jentadueto XR) lisinopril 5 mg tablet 5 mg PO QAM 04/20/22 05/07/22 History semaglutide 0.25 mg or 0.5 mg (2 0.5 mg subcut WK 04/20/22 05/07/22 History mg/1.5 mL) subcutaneous pen injector (Ozempic) umeclidinium 62.5 mcg/actuation 1 inh inhalation QAM 04/20/22 05/07/22 History blister powder for inhalation (Incruse Ellipta) blood sugar diagnostic (OneTouch #100 ea 04/30/22 05/04/22 Rx Ultra Test strips) docusate sodium 100 mg capsule 100 mg PO BID #60 caps 05/06/22 05/07/22 Rx (Colace) famotidine 40 mg tablet (Pepcid) 40 mg PO HS 05/07/22 05/07/22 History rosuvastatin 10 mg tablet 10 mg PO HS 05/07/22 05/07/22 History Patient History Medical History Allergic rhinitis Anxiety Cervical radiculopathy Cervical spinal stenosis Chronic back pain Chronic GERD Occasional Complex partial seizure Single episode 5+ years - felt r/t severe pain and arm injury per pt COPD, moderate Stable Coronary artery disease Non-obstructive CAD (circumflex PDA 50-60 proximal stenosis, Mild RCA 20%) per 2014 cardiac cath Degenerative disc disease Depression DM type 2 (diabetes mellitus, type 2) NIDDM Dyslipidemia Dystonic tremor Pt denies Per [facility] [place] (06/09/21): "Resolved paroxysmal upper extremity movements. Etiology of these movements was not entirely clear although they seem to respond to Keppra. In any event, this prescription ran out about 1 month ago. The abnormal movements have not recurred. At this point in time, patient will continue to monitor for any symptomatic recurrence, if so, may contact me for further evaluation and management at that time. Otherwise, return to neurology clinic on an as-needed basis." Hypertension Osteoarthritis Poor historian Sciatica Sleep apnea Does not use device Surgical History History of appendectomy History of cardiac catheterization 2014 ([facility]) History of colonoscopy History of inguinal hernia repair Right History of knee replacement R/L History of oral surgery History of repair of rotator cuff Right History of tonsillectomy and adenoidectomy Hx of cervical spine surgery Fusion/"wires" S/P knee surgery Left knee ligament removal Family History Mother Type 2 diabetes mellitus Acute myocardial infarction Father Prostate cancer Type 2 diabetes mellitus Acute myocardial infarction Brother Lymphoma Other No family history of adverse response to anesthesia Social History Smoking Status: Former smoker Second Hand Exposure: No; Do You Dip or Chew Tobacco: No; Tobacco Cessation Education Requested by Patient: No Hx Alcohol Use: No Hx Substance Use: No Preferred Language: Amharic Communication Ability: Effective Visual Impairment: No Limitations Hearing Ability: Normal Supervisor Nurse Required: No Beliefs That Will Affect Care: None marital status: Current Living Situation: Spouse Current Living Situation Comment: , daughter and son in law and granddaughter current occupational status: unemployed and disabled Other Information That Helps Us Care for You: No Feels Safe at Home: Yes Safety Concerns: Feels Safe At This Time caffeine: Yes Dental Care, Regularly: No Physical Activity Frequency: Does not Exercise Seatbelt Use: always Sunscreen Use: No Assistive Devices: Cane, Denture - Upper, Glasses and Walker Review of Systems Review of Systems: Review of systems: Constitutional: No fever/chills, weakness, fatigue, myalgias, anorexia, night sweats Eyes: No diplopia, no worsening or blurred vision ENT: normal hearing, no trouble swallowing Respiratory: No cough, sputum, dyspnea at rest or on exertion Cardiovascular: No chest pain, tightness or palpitations Abdomen: No pain, nausea, vomiting, diarrhea or constipation : Denies dysuria, hematuria, increased urgency/frequency, urinary retention Musculoskeletal: No joint pain, calf pain, swelling Neurologic: No weakness, numbness/tingling, or balance problems Psychiatric: No anxiety or depression Skin: No rash or itch Physical Exam Physical Exam: General: awake, alert, no apparent distress Head: Normocephalic, atraumatic ENT: PERRL, EOMI, no pharyngeal exudate, mucous membranes moist Chest: Clear to auscultation, on room air, no adventitious breath sounds Cardiac: Regular rate and rhythm, no murmur, no JVD, normal peripheral pulses, good capillary refill Abdominal: NABS x 4 quadrants, soft, nontender to palpation, no rebound, guarding or tenderness Extremities: Bandage in place, without surrounding erythema or edema on low back; bilateral ROZ hose and SCDs applied to lower extremities; normal inspection, no peripheral edema or erythema, calfs nontender to palpation Psych: Normal mood and affect Neuro: AAO x 3, strength intact bilaterally and rated 5/5, no motor deficits, speech is clear, no peripheral sensory deficits Skin: no rash or erythema Results & Data Results & Data ([facility]) Vital Signs (Past 12 Hours) Vital Signs Temp Pulse Pulse Resp BP Pulse Ox O2 Del Method 05/07/22 17:00 36.5 C 84 16 110/67 100 Nasal Cannula 05/07/22 16:29 36.6 C 75 16 112/71 96 Nasal Cannula 05/07/22 16:00 36.8 C 78 16 105/61 99 Nasal Cannula 05/07/22 15:40 36.5 C 64 12 102/68 97 Nasal Cannula 05/07/22 15:30 73 12 105/68 93 Room Air 05/07/22 15:20 36.3 C L 70 16 118/71 95 Room Air 05/07/22 15:10 69 18 117/73 99 Oxymask 05/07/22 15:00 69 16 116/72 99 Oxymask 05/07/22 14:50 36.4 C L 74 16 121/72 99 Oxymask 05/07/22 09:28 36.5 C 72 18 137/82 98 Room Air O2 Flow Rate 05/07/22 17:00 2 05/07/22 16:29 2 05/07/22 16:00 2 05/07/22 15:40 2 05/07/22 15:30 05/07/22 15:20 05/07/22 15:10 4 05/07/22 15:00 6 05/07/22 14:50 8 05/07/22 09:28 Laboratory Results Abnormal lab results 05/07/22 05/07/22 05/07/22 Range/Units 09:17 09:36 15:11 POC Glucose 124 H 157 H (70-99) mg/dl Crossmatch See Detail 05/07/22 Range/Units 17:20 POC Glucose 197 H (70-99) mg/dl Crossmatch Diagnostic Findings Lumbar Spine X-Ray 05/07/22 11:05 INTRAOPERATIVE RADIOGRAPHS CLINICAL HISTORY: L3-L5 spinal fusion. Fluoroscopy time: 21 seconds. FINDINGS: 2 spot fluoroscopic views of the lumbar spine are presented. There has been discectomy at L3-L4 and L4-L5 with laminectomy and posterior fusion at L3- L5. Interpedicular screws are present at all levels. The orthopedic hardware appears intact. IMPRESSION: Intraoperative images from lumbar spinal fusion surgery as above. Electronically signed by: Rock Gramajo M.D. 05/07/2022 3:24 PM PG Care Time/CCT Total # of Minutes Spent Total Time Spent with Patient: Total time spent is greater than 50% in coordination of care (as documented) at patient's floor/unit and/or counseling patient: Coding Level of Care Code 04643 Inpt Consult Level 1 Diagnoses Neurogenic claudication due to lumbar spinal stenosis M48.062 Coronary artery disease I25.10 DM type 2 (diabetes mellitus, type 2) E11.9 Gastroesophageal reflux disease K21.9 Hypertension I10 COPD, moderate J44.9 Allergic rhinitis J30.9 Severe sleep apnea G47.30
[2022-05-07] MEDS: INSULIN ASPART PER UNIT SC SCH ×2 (18:29→20:42)
[2022-05-07] MEDS: ceFAZolin 2000MG 2,000 MG/15 ML SYR IV SCH (20:33)
[2022-05-07] MEDS: GABAPENTIN 300 MG CAP PO SCH (20:34)
[2022-05-07] MEDS: FAMOTIDINE 40 MG TABLET PO SCH (20:34)
[2022-05-07] MEDS: ROSUVASTATIN CALCIUM 10 MG TAB PO SCH (20:34)
[2022-05-07] MEDS: DOCUSATE SODIUM/SENNA 50/8.6MG TAB PO SCH (20:34)
[2022-05-07] MEDS: LORATADINE 10 MG TAB PO SCH (22:16)
[2022-05-08] MEDS ORDERED: INSULIN ASPART PER UNIT SC SCH (02:00)
[2022-05-08] MEDS: ceFAZolin 2000MG 2,000 MG/15 ML SYR IV SCH (05:01)
[2022-05-08] MEDS: POLYETHYLENE (MIRALAX) 17 GM PACK PO SCH ×3 (05:03→17:27)
[2022-05-08 05:48] LABS: Basophils # (auto) 0.01 K/uL (0-0.2); Basophils % (auto) 0.1 %; Hematocrit (blood only) 33.4 % (40.1-51.0); Hemoglobin 11.1 g/dl (14.0-18.0); Immature Granulocytes # (auto) 0.04 K/uL (0.00-0.02); Immature Granulocytes % (auto) 0.3 %; Lymphocytes # (auto) 1.33 K/uL (1.2-3.4); Lymphocytes % (auto) 9.2 %; Mean Corpuscular Hgb Conc 33.2 g/dL (32.0-36.0); Mean Corpuscular Volume 81.3 fL (80.0-100.0); Mean Platelet Volume 10.3 fL (9.4-12.4); Monocytes # (auto) 1.25 K/uL (0.24-0.82); Monocytes % (auto) 8.7 %; Neutrophils # (auto) 11.77 K/uL (1.4-6.5); Neutrophils % (auto) 81.7 %; Platelet Count 186 K/uL (130-400); RDW Coefficient of Variation 13.7 % (11.5-14.5); RDW Standard Deviation 40.2 fL (36.4-46.3); Red Blood Count 4.11 M/uL (4.63-6.08)
[2022-05-08 06:14] LABS: BUN Creatinine Ratio 14.4 (10-20); Creatinine Clr Calc Pharmacy 92.1 ml/min; Est GFR (African American) 97.3 ml/min; Est GFR (Non-African American) 83.9 ml/min
--- NOTE | 2022-05-08 08:03 | Orthopedic Progress Note ---
Date of Service May 08, 2022 Assessment & Plan (1) Neurogenic claudication due to lumbar spinal stenosis: Plan: At this time initiate physical therapy monitor his BROOKS operatively discharge home the next day or so. Admission and Anticipated Discharge Date Admission Date: May 07, 2022 Subjective Back pain controlled leg symptoms improved Physical Exam Physical Exam: Patient is good strength testing appears comfortable. Results & Data ([facility]) Vital Signs (Past 12 Hours) Vital Signs Temp Pulse Resp BP Pulse Ox O2 Del Method 05/08/22 07:21 37.1 C 114 H 14 114/74 97 Room Air 05/08/22 03:23 88 18 96 Room Air 05/08/22 03:11 36.9 C 82 16 115/71 96 Room Air 05/07/22 22:49 36.7 C 86 16 117/73 97 Room Air
[2022-05-08] MEDS: SODIUM CHLORIDE 0.9% 1000ML 1,000 ML IV SCH (08:06)
[2022-05-08] MEDS: UMECLIDINIUM BROMIDE 62.5MCG/BLISTER 7 PUFFS/INHALER INH SCH (08:37)
[2022-05-08] MEDS: ASPIRIN 81 MG ECTAB PO SCH (08:37)
[2022-05-08] MEDS: GABAPENTIN 300 MG CAP PO SCH ×2 (08:38→19:41)
[2022-05-08] MEDS: INSULIN ASPART PER UNIT SC SCH ×4 (08:45→21:35)
[2022-05-08] MEDS ORDERED: lisinopril 5 MG TAB PO SCH (09:00)
[2022-05-08] MEDS ORDERED: LANTUS PER UNIT CHARGE SQ SCH (09:00)
[2022-05-08 10:56] LABS: Estimated Average Glucose 143 mg/dl; Hemoglobin A1C 6.6 % (4.5-5.6)
--- NOTE | 2022-05-08 11:28 | Hospitalist Progress Note ---
Date of Service May 08, 2022 Assessment & Plan (1) Neurogenic claudication due to lumbar spinal stenosis: Plan: - POD#1, EBL 300cc, 1 BROOKS drain, no complications. - Pain/ABX/IVF/diet/drain management/transfusion needs/activity per primary team - Rescue Narcan ordered for over sedation PRN - VTE prophylaxis per primary service- SCDs in place - Post op labs - mild anemia and leucocytosis expected after operation and steroids - Baseline renal function: CR 1.17, GFR 67 (2) Coronary artery disease: Plan: - Cardiac cath in 2014 showed nonobstructive disease. Patient had a normal stress test in 2016. He has not had recent chest pain, shortness of breath, GARDUNO, palpitations. - Continue ASA 81 mg daily, Crestor, lisinopril on POD #2. (3) DM type 2 (diabetes mellitus, type 2): Plan: - Hold oral agents while in hospital, placed on Accu-Cheks ACHS with SSI. - A1c in October = 7.1%, repeat 6.6 - no change to diabetes medications on discharge - Continue gabapentin for neuropathy. (4) Gastroesophageal reflux disease: Plan: - Chronic, stable. Continue Pepcid 40 mg at night. (5) Hypertension: Plan: - Restart Lisinopril POD#2 as long as no dizziness (6) COPD, moderate: Plan: -Continue home inhalers, Ellipta in the morning with TYLER as needed. (7) Allergic rhinitis: Plan: - Continue Flonase and Claritin. (8) Severe sleep apnea: Plan: - No longer using CPAP. Plan - Admitted to [facility] per primary team - SCDs ordered per primary team, further VTE PPx per primary team. - Full code. Thank you for the consult. He appears to be stable post operatively. No further medical interventions required and no change to his usual chronic medications recommend from a medical perspective on discharge. Admission and Anticipated Discharge Date Admission Date: May 07, 2022 Subjective Doing excellent post operatively - significant radicular pain relief since operation. He reports mild dizziness on standing. Raspberry ice and tea made him nauseous yesterday but now relived. Passing gas but no BM yet. Review of Systems Review of Systems: All systems reviewed & are unremarkable except as noted in HPI & below Physical Exam Constitutional: WD/WN, vitals as above Eyes: + anicteric sclerae; normal pupil size Respiratory: normal respiratory effort, lungs clear to auscultation Cardiovascular: RRR, no murmur, no edema Gastrointestinal (Abdomen): normal bowel sounds, soft, nontender, no hepatosplenomegaly Neurologic: Motor/Sensory: no sensory deficit (b/l LE) Psychiatric: A+Ox3, euthymic affect Results & Data Results & Data ([facility]) Vital Signs (Past 12 Hours) Vital Signs Temp Pulse Resp BP Pulse Ox O2 Del Method 05/08/22 11:21 36.6 C 101 H 16 129/82 98 Room Air 05/08/22 07:21 37.1 C 114 H 14 114/74 97 Room Air 05/08/22 03:23 88 18 96 Room Air 05/08/22 03:11 36.9 C 82 16 115/71 96 Room Air PG Care Time/CCT Total # of Minutes Spent Total Time Spent with Patient: Total time spent is greater than 50% in coordination of care (as documented) at patient's floor/unit and/or counseling patient: Coding Level of Care Code 19141 Subseq Hosp Care Lvl 1 Diagnoses Neurogenic claudication due to lumbar spinal stenosis M48.062 Coronary artery disease I25.10 DM type 2 (diabetes mellitus, type 2) E11.9 Gastroesophageal reflux disease K21.9 Hypertension I10 COPD, moderate J44.9 Allergic rhinitis J30.9 Severe sleep apnea G47.30
--- NOTE | 2022-05-08 14:27 | Pharmacy Report ---
Pharmacy Glycemic Short Note 2 - Date of Service May 08, 2022 - Glycemic Short BSG Results (Last 24 hours): 05/07/22 05/07/22 05/07/22 15:11 17:20 20:28 Glucose POC Glucose 157 H 197 H 186 H 05/08/22 05/08/22 05/08/22 02:43 05:31 07:58 Glucose 158 H POC Glucose 132 H 184 H 05/08/22 12:03 Glucose POC Glucose 180 H OUTPATIENT ANTIDIABETIC REGIMEN: * Ozempic weekly * Jentaduo XR * HbA1C = 6.6% (04/28/22) ASSESSMENT: * Mr Pena is a 61 y/o M with a PMH of T2DM who presents for spinal surgery. * Patient's BSGs yesterday were 124 mg/dL preop then 197 - 186 mg/dL after surgery. He received 4 mg of IV dexamethasone intraop. * Patient received 15 units of Lantus yesterday + 11 units of Novolog. * Fasting BSG is 184 mg/dL. * Continue Lantus 15 units daily + Novolog weight-based stress 2. PLAN FOR INPATIENT GLYCEMIC CONTROL: * Hold outpatient oral diabetes medications * Basal insulin * Lantus 15 units SQ daily * Bolus insulin * NovoLog per scale ACHS or Q6hrs while NPO * Goal Range: Low 110 mg/dL - High 140 mg/dL * Correction Factor: 25 mg/dL/unit * Nutritional / Prandial insulin per carb ratio of 1 unit per 8 grams CHO consumed
[2022-05-08] MEDS: ROSUVASTATIN CALCIUM 10 MG TAB PO SCH (19:40)
[2022-05-08] MEDS: LORATADINE 10 MG TAB PO SCH (19:40)
[2022-05-08] MEDS: DOCUSATE SODIUM/SENNA 50/8.6MG TAB PO SCH (19:41)
[2022-05-08] MEDS: FAMOTIDINE 40 MG TABLET PO SCH (19:41)
[2022-05-09] MEDS: POLYETHYLENE (MIRALAX) 17 GM PACK PO SCH ×3 (01:16→13:31)
--- NOTE | 2022-05-09 08:19 | Discharge Summary ---
Date of Service May 09, 2022 Principal Diagnosis Lumbar spinal stenosis with neurogenic claudication Discharge Data Allergies Allergy/AdvReac Type Severity Reaction Status Date / Time No Known Allergies Allergy Unknown Verified 05/07/22 09:16 Consultations 05/07/22 16:07 Consult Hospitalist Routine Procedures Performed Operation Date: 05/07/22 11:05 Actual Procedures p L3-L5 Decompression and Fusion with Spinal Cord Monitoring - Ulises Castrejon DO Ordered Studies 05/07/22 11:05 FL lumbar spine 2-3V Routine Hospital Course (1) Neurogenic claudication due to lumbar spinal stenosis: Patient 1 lumbar decompression fusion tolerated procedure well was taken to the orthopedic for postoperative. Postop day 1 he was up and ambulating progressed to postop day #2 on postop day #2 he is pain was well controlled BROOKS drain decreasing probably. Subsequent discharge home. Discharge orders instructions from the chart for further review. Total Time Total Time Spent Total Time Spent (In Minutes): 20 minutes Discharge Plan Discharge Items Patient Disposition: Home - Self-Care Reason For Visit: Spinal Stenosis, Lumbar Region with Neurogenic Discharge Diagnosis: Lumbar spinal stenosis with neurogenic claudication Activity: As commented below Non-emergency contact: Primary Care Provider Call non-emergency contact if: you have any medication questions Follow-up/Referrals: Vernon Hoffman MD [Primary Care Provider] - Diet: Regular Addtl Attending Provider Instructions: ACTIVITY RECOMMENDATIONS: SELF CARE INSTRUCTIONS AFTER THORACIC/LUMBAR FUSIONS 1. You may walk to your tolerance. It is good exercise for your legs and back. Expect some back and intermittent leg aches and pains. 2. You may perform "counter-top" level activities (make a sandwich, anselmo with a project, etc.). 3. No bending or lifting of more than 10 pounds or back twisting of any nature (roll like a log when turning in bed). 4. You may ride in a car for 20-30 minutes at a time. No driving until after your first visit with your doctor. 5. Frequent changes of position and restricting sitting to 30 minutes at a time will help limit the amount of back spasms and stiffness you may experience. 6. You may discontinue the use of ambulatory aids (cane, crutches, etc.) once your strength and confidence allow. 7. You may math and physics instructor the shower and let water strike your incision when you arrive home at least once daily. Do not take a tub bath, sit in a hot tub or go into a swimming pool until after your first recheck in the office. SPECIAL CARE INSTRUCTIONS: VERY IMPORTANT TO READ AND REVIEW A. Your surgical incision has been closed with a cosmetic suture under the skin that will dissolve in about 6 weeks. In 14 days, you can use a pair of clean scissors and cut the suture that is left outside of the skin at the ends of your incision. 1. The small skin tapes can be removed 7 days after surgery if they have not fallen off by that point. 2. You may keep the wound open to air as much as possible to promote healing after post-op day number 5 unless told otherwise by your doctor. 3. If you think the wound looks like it is becoming infected (redness or worsening drainage) and/or you are experiencing fever, chill or worsening back pain and muscle spasms, contact the office so that we may evaluate you as soon as possible. B. Complications are uncommon, but please contact us if you have any signs or symptoms of: 1. wound infection (fever higher than 102.5 degrees F, redness, separation of wound, drainage, or increasing pain from the incision) 2. blood clots in legs (pain, swelling, redness and warmth in legs) 3. urinary tract infection (fever higher than 102.5 degrees F, burning upon urination or increased frequency of urination) 4. nerve problems (inability to walk on your toes or heels, numbness, loss of bowel or bladder control) 5. any other symptoms that concern you C. Please call the office at if you have any concerns or questions about your operation or recovery. D. No smoking! Smoking drastically decreases the chance of a solid fusion. E. Do not take any anti-inflammatory medications (Indocin, Advil, Motrin, Aspirin, Naprosyn, etc.) as these may inhibit the chance of a solid fusion. Tylenol is okay to take for pain. MANAGING PAIN AFTER SPINAL SURGERY 1. Narcotic medication is intended for short-term use and will be provided for surgical pain. Surgical pain usually lasts for a period of 4-6 weeks. Narcotic medication includes Percocet, Vicodin, Darvocet, Tylenol #3 or Lortab. 2. Longer-term pain is more appropriately treated with non-narcotic medication such as Tylenol ES. 3. Muscle spasm is not appropriately treated with narcotics. Muscle relaxers such as Soma, Flexeril or Skelaxin can be used along with Tylenol ES. 4. Remember that we all live with some "aches and pains". This is not unusual or uncommon after an injury or as we get older. a. Back pain is expected and may include muscle spasms for 4 to 6 weeks after surgery. The pain should gradually improve. If the pain worsens for no apparent reason, please contact the office. b. Intermittent leg pain may also be experienced and should not be concerned about unless it worsens for no apparent reason. If so, please contact the office. 5. We will provide appropriate medication within the normal guidelines of their prescribed use. We will also be very cautious and aware of potential abuse and extended duration of patients' medication needs. a. Pain medications are for your comfort and to assist with sleep and rest so that the tissue can heal. They are not provided in order to return to normal activity and should not be used through the day. To do so or worsening pain at night can result from ongoing tissue damage and de velopment of tolerance to the prescribed medicine. 6. Please allow 2-3 days to process refills. Prescriptions will not be mailed but must be picked up at the office. FOLLOW UP VISIT: Keep your scheduled follow-up appointment. Any questions, please call the office at . Pending Studies at Discharge: No Stand-Alone Forms: My [facility] BookTour, Smoking Cessation Medications and DC Order Prescriptions: New tramadol 50 mg tablet 50 mg PO Q6H PRN (Reason: pain, moderate) Qty: 30 0RF oxycodone 5 mg tablet 5 mg PO Q6H PRN (Reason: pain, severe) Qty: 30 0RF Continued (DME) blood-glucose meter Kit See Rx Instructions .Route Qty: 1 0RF Rx Instructions: check blood sugar once daily E11.9 fluticasone propionate 50 mcg/actuation spray,suspension See Rx Instructions .ROUTE .COMPLEX Qty: 16 10RF Dose Instruction: INSTILL 2 SPRAYS IN EACH NOSTRIL NEEDED Rx Instructions: INSTILL 2 SPRAYS IN EACH NOSTRIL NEEDED (DME) lancets [OneTouch Delica Lancets] 33 gauge misc See Dose Instructions .ROUTE .MEDSUPPLY Qty: 100 3RF Dose Instruction: As directed Rx Instructions: check once daily as directed E11.9 gabapentin 300 mg capsule 300 mg PO BID Qty: 180 1RF albuterol sulfate 90 mcg/actuation HFA aerosol inhaler 2 puff inhalation Q4H PRN (Reason: shortness of breath or wheezing) Qty: 18 3RF (DME) OneTouch Ultra Test Strip See Rx Instructions .ROUTE .MEDSUPPLY Qty: 100 5RF Rx Instructions: As directed Dx E11.9 Test once daily docusate sodium [Colace] 100 mg capsule 100 mg PO BID Qty: 60 0RF cyclosporine [Restasis] 0.05 % Dropperette 1 drp OPHTHALMIC (EYE) Q12H aspirin 81 mg tablet,delayed release (DR/EC) 81 mg PO QAM lisinopril 5 mg tablet 5 mg PO QAM levocetirizine 5 mg tablet 5 mg PO QPM Rx Instructions: TAKE ONE (1) TABLET BY MOUTH ONCE DAILY FOR ALLERGY SYMPTOMS Incruse Ellipta 62.5 mcg/actuation blister with device 1 inh INH QAM Rx Instructions: inhalation daily; Jentadueto XR 5-1,000 mg tablet, IR - ER, biphasic 24hr 1 tab PO QAM Ozempic 0.25 mg or 0.5 mg(2 mg/1.5 mL) pen injector 0.5 mg subcut WK Rx Instructions: weekly on fridays acetaminophen 500 mg Tablet 500 mg PO Q6H PRN (Reason: Pain) famotidine [Pepcid] 40 mg tablet 40 mg PO HS rosuvastatin 10 mg tablet 10 mg PO HS Discharge Orders: Discharge Order (Routine); Ordered 05/09/22 Ordered By: Ulises Reina/Other Patient Handouts: High Blood Sugar (Hyperglycemia), Managing Type 2 Diabetes, 5 Steps for Eating Healthier Admission Data Admit Date/Time: 05/07/22 15:09 Attending Provider: Ulises Castrejon Admit Provider: Ulises Castrejon Primary Care Provider: Vernon Hoffman Other Providers: Corbin Thakur Jonathan M.
[2022-05-09] MEDS: GABAPENTIN 300 MG CAP PO SCH (08:34)
[2022-05-09] MEDS: UMECLIDINIUM BROMIDE 62.5MCG/BLISTER 7 PUFFS/INHALER INH SCH (08:34)
[2022-05-09] MEDS: ASPIRIN 81 MG ECTAB PO SCH (08:35)
[2022-05-09] MEDS ORDERED: LANTUS PER UNIT CHARGE SQ SCH (09:00)
[2022-05-09] MEDS ORDERED: lisinopril 5 MG TAB PO SCH (09:00)
[2022-05-09] MEDS: INSULIN ASPART PER UNIT SC SCH ×2 (10:24→13:59)
== END 2022-05-09 14:20 | disposition home or self-care (01) | DRG 455 ==
LOC: ASU 08:52 → 3E 15:09
DX: Z79.82 Long term (current) use of aspirin; J44.9 Chronic obstructive pulmonary disease, unspecified; F32.A Depression, unspecified; G47.30 Sleep apnea, unspecified; M48.062 Spinal stenosis, lumbar region with neurogenic claudication; I25.10 Atherosclerotic heart disease of native coronary artery without angina pectoris; Z98.1 Arthrodesis status; Z83.3 Family history of diabetes mellitus; I10 Essential (primary) hypertension; Z79.84 Long term (current) use of oral hypoglycemic drugs; K21.9 Gastro-esophageal reflux disease without esophagitis; Z68.33 Body mass index [BMI] 33.0-33.9, adult; Z87.891 Personal history of nicotine dependence